=== PATIENT | female | born 1995 | race African-American/Black ===

== ENCOUNTER 2016-09-08 18:31 | Emergency (ER) | payer BC ==
[2016-09-08] MEDS ORDERED: Lidocaine Viscous Sol 2% 15 ml UD Cup ONE (19:04)
[2016-09-08] MEDS ORDERED: Famotidine 20 MG TAB ONE (19:04)
[2016-09-08] MEDS ORDERED: Mag-Al Plus 1200 MG/1200 MG/120 MG/30 ML UDCUP ONE (19:04)
[2016-09-08 19:10] LABS: #Basophils 0.1 thou/uL (0.0-0.2); #Eosinphils 0.1 thou/uL (0.0-0.7); #Lymphocytes 2.3 thou/uL (1.20-3.40); #Monocytes 0.7 thou/uL (0.11-0.59); #Neutrophils 6.2 thou/uL (1.40-6.50); %Basophils 0.9 % (0.0-1.0); %Eosinophils 1.2 % (0.0-10.0); %Lymphocytes 24.5 % (28.0-48.0); %Monocytes 7.4 % (0.0-4.0); Hematocrit 38.5 % (36.0-47.0); Mean Platelet Volume 7.6 fL (7.4-10.4); Red Blood Cell (RBC) Count 4.38 mill/uL (4.00-5.20); White Blood Cell (WBC) Count 9.3 thou/uL (4.8-10.8)
[2016-09-08 19:25] LABS: ALT (SGPT) 39 U/L (0-55); AST (SGOT) 31 U/L (5-34); Alkaline Phosphatase 81 U/L (40-150); Anion Gap 11 mmol/L (10-20); BUN (Urea Nitrogen) 10 mg/dL (7.0-18.7); Bilirubin, Total 0.1 mg/dL (0.2-1.2); Calc. Creatinine Clearance 0 mL/min (70-130); Calcium 8.8 mg/dL (7.8-10.44); Carbon Dioxide 26 mmol/L (22-29); Chloride 109 mmol/L (98-107); Estimated GFR-MDRD Greater than 90; Globulin 2.9 g/dL (2.4-3.5); Lipase 36 U/L (8-78); Protein, Total 6.6 g/dL (6.0-8.3)
--- NOTE | 2016-09-08 19:52 | ERRECORD ---
[facility] EMERGENCY RECORD HPI ABDOMINAL PAIN (18:58 BLEW) CHIEF COMPLAINTS: Patient presents for evaluation of abdominal pain. HISTORIAN: History provided by patient, Patient reports "burning" epigastric for 3 days. Worse after eating, especially something spicey. A "TUMS" taken yesterday helped somewhat (transiently). Pain is non-radiating. Patient had similar pains (although much worse) a few years ago due to bad stomach acid. She has not been taking any meds since that time. She is nauseous, but no vomiting. No black or bloody stools. LOCATION FEMALE: Symptoms are localized, most severe in the epigastrium, no radiation, No migration of pain. QUALITY: Described as similar to previous episodes. SEVERITY: Maximum severity of symptoms moderate, Currently symptoms are moderate. TIME COURSE: Gradual onset of symptoms. ASSOCIATED WITH FEMALE: No associated recent antibiotic use, No associated bright red blood per rectum, No associated constipation, No associated diarrhea, No associated fever, Associated with nausea, No associated trauma, No associated inability to tolerate oral intake, No associated urinary tract infection signs or symptoms, No associated vomiting, No associated vaginal discharge, No associated vaginal bleeding. ROS (19:01 BLEW) CONSTITUTIONAL: Negative constitutional review of systems, Historian denies chills, denies fever. EYES: Negative eye review of systems. ENT: Negative ears, nose, throat review of systems. CARDIOVASCULAR: Negative cardiovascular review of systems, Historian denies chest pain, denies palpitations. RESPIRATORY: Negative respiratory review of systems, Historian denies cough, denies shortness of breath. GI: Negative gastrointestinal review of systems, Historian denies abdominal pain, denies constipation, denies diarrhea. MUSCULOSKELETAL: Negative musculoskeletal review of systems. SKIN: Negative skin review of systems. NEUROLOGIC: Negative neurologic review of systems. ENDOCRINE: Negative endocrine review of systems. HEMO/LYMPHATIC: Normal hematologic/lymphatic system review. PSYCHIATRIC: Negative psychiatric review of systems. NOTES: All other ROS is negative except as listed in HPI. PAST MEDICAL HISTORY MEDICAL HISTORY: No past medical history. (18:42 GHIA) FEMALE SURGICAL HISTORY: Patient has no surgical history. (18:42 GHIA) PSYCHIATRIC HISTORY: No previous psychiatric history. (18:42 GHIA) SOCIAL HISTORY: Social History includes lives with &a-1R&a+25V*p+0X*y6711Y*c202B*c15G*c2P*p-0X&a-25V&a+1R Name: Anna Bates : 1995 F21 MedRec: [id number] AcctNum: [id number] Prepared: Mariam Sep 08, 2016 19:49 by Interface Page 1 of 3 pMD [facility] EMERGENCY RECORD alone, Patient denies alcohol use, Patient denies drug use, Patient has no smoking history. (18:42 GHIA) NOTES: I have reviewed and agree with the PMH/PSxH/FamHx/SocHx obtained by the nurse. (19:01 BLEW) KNOWN ALLERGIES none CURRENT MEDICATIONS (19:15 LHAL) None VITAL SIGNS VITAL SIGNS: BP: 133/79, Pulse: 77, Resp: 17, Temp: 98.7PO, Pain: 8, O2 sat: 100 on RA, Time: 09/08/2016 18:36. (18:36 GHIA) BP: 112/73, Pulse: 72, Resp: 16, Temp: 97.2, Pain: 0, O2 sat: 99 on RA, Time: 09/08/2016 19:40. (19:40 LHAL) PHYSICAL EXAM (19:01 BLEW) CONSTITUTIONAL: Vital signs reviewed, Patient appears non toxic, Patient alert and oriented to person, place and time, Pt is in no apparent distress. HEAD: Head exam included findings of head atraumatic, normocephalic. EYES: Eye exam included findings of eyelids normal to inspection, Pupils equally round and reactive to light, Extraocular muscles intact. ENT: ENT exam normal, Nose exam normal, no nasal deformity, no bleeding from nares, Pharynx exam normal, Mouth exam normal, mucous membranes moist. NECK: Neck exam included findings of normal range of motion, Trachea midline. RESPIRATORY CHEST: Respiratory and chest exam normal, Breath sounds clear, No wheezing, No rales, Chest exam included findings of chest movement symmetrical, Chest expansion equal. CARDIOVASCULAR: Cardiovascular assessment normal, Cardiovascular exam included findings of heart rate regular rate and rhythm, Heart sounds normal. ABDOMEN FEMALE: Abdominal exam included findings of abdomen nontender, Bowel sounds normal, no mass, no pulsatile masses, no peritoneal signs. BACK: Back exam included findings of normal inspection, range of motion normal, no costovertebral angle tenderness. UPPER EXTREMITY: Upper extremity exam included findings of inspection normal, Range of motion normal. LOWER EXTREMITY: Lower extremity exam included findings of inspection normal, Range of motion normal. NEURO: Neuro exam findings include patient oriented to person, place and time, Speech normal, no focal motor deficits, no focal sensory deficits. SKIN: Skin exam included findings of skin warm, dry, and normal &a-1R&a+25V*p+0X*y5559W*c202B*c15G*c2P*p-0X&a-25V&a+1R Name: Anna Bates : 1995 F21 MedRec: [id number] AcctNum: [id number] Prepared: Mariam Sep 08, 2016 19:49 by Interface Page 2 of 3 pMD [facility] EMERGENCY RECORD in color. LYMPHATIC: Lymphatic exam normal. PSYCHIATRIC: Psychiatric exam included findings of patient oriented to person place and time, Normal affect. MEDICATION ADMINISTRATION SUMMARY Drug Name: GI COCKTAIL - WHITE, Dose Ordered: 40 mL, Route: Oral, Status: Given, Time: 19:03 09/08/2016, Drug Name: famotidine oral, Dose Ordered: 20 mg, Route: Oral, Status: Given, Time: 19:03 09/08/2016, Detailed record available in Medication Service section. DOCTOR NOTES (19:19 BLEW) NOTES: Patient presents with upper abdominal pain. DDX considered includes: pyelo, appy, diverticulitis, GB dz., PUD, pancreatitis, gastritis, crohn's, AAA, obstruction. Abd exam is not c/w surgical abdomen. Testing here is re-assuring and patient is stable for outpatient follow up. Patients pain is controlled and is tolerating PO's. PROBLEM LIST No recorded problems DIAGNOSIS (19:20 BLEW) FINAL: PRIMARY: ACUTE GASTRITIS WITHOUT BLEEDING. PRESCRIPTION (19:20 BLEW) Carafate: SUSPENSION, ORAL (FINAL DOSE FORM) : 1 gram/10 mL : ORAL : Quantity: 10 Unit: mL Route: ORAL Schedule: every 6 hours PRN Dispense: 200 May substitute. Refills: No Refills . NOTES: May substitute for capsule formulation (#24) No Refills. PriLOSEC OTC: TABLET, DELAYED RELEASE (ENTERIC COATED) : 20 mg : ORAL : Quantity: 20 Unit: mg Route: ORAL Schedule: 2 times a day (before meals) Dispense: 60 May substitute. Refills: No Refills . NOTES: No Refills. DISPOSITION PATIENT: Disposition Type: Discharge, Disposition: *Discharge Home. (19:39 BLEW) Patient left the department. (19:46 LHAL) Nino: BLEW=DO Maldonado Brandon GHIA=PANKAJ Duran, Ciera LHAL=PANKAJ Lord, Lori &a-1R&a+25V*p+0X*[id number]*c202B*c15G*c2P*p-0X&a-25V&a+1R Name: Anna Bates : 1995 F21 MedRec: [id number] AcctNum: [id number] Prepared: Mariam Sep 08, 2016 19:49 by Interface Page 3 of 3 pMD MTDD
--- NOTE | 2016-09-08 19:58 | PICIS ---
[facility] EMERGENCY RECORD TRIAGE (18:36 GHIA) PATIENT: NAME: Anna Bates, AGE: 21, GENDER: female, : Sun 1995, TIME OF GREET: MonSep 08, 2016 18:32, ECODE BILLING MAP: [facility], Zip Code: [address], KG WEIGHT: 83.91, PHONE: , , , PERSON ID: [id number]. (18:36 GHIA) TRIAGE NOTES: Center abd pain after eating. (18:36 GHIA) COMPLAINT: BURNING SENSATION IN ABD. (18:36 GHIA) ADMISSION: URGENCY: 3 Urgent, ADMISSION SOURCE: Home, TRANSPORT: CAR, BED: TRIAGE. (18:36 GHIA) ASSESSMENT: Assessment: Pt with center abd pain., Symptoms began 4 days ago. (18:42 GHIA) PAIN: Patient complains of pain described as, Location center abd...worse before and after eating, Pain is constant. (18:42 GHIA) IMMUNIZATIONS: Flu vaccine not up to date, Tetanus not up to date, Pneumococcal vaccine not up to date. (18:42 GHIA) SIRS SCORING: Heart Rate 55-109 (0), Temp range 96.8-101.1 (0), respiratory rate 12-24 (0), Mental Status altered: no (0). (18:42 GHIA) TRIAGE SCREENING: Patient denies suicidal ideation, Patient denies presence of domestic violence. (18:42 GHIA) LMP: Last menstrual period: current, , P: 0, AB: 0. (18:42 GHIA) TREATMENTS IN PROGRESS: Treatments given Prehospital: tums like med x 2 days; 1400 today. (18:42 GHIA) PROVIDERS: TRIAGE NURSE: Ciera Duran RN. (18:36 GHIA) KNOWN ALLERGIES none CURRENT MEDICATIONS (19:15 LHAL) None VITAL SIGNS VITAL SIGNS: BP: 133/79, Pulse: 77, Resp: 17, Temp: 98.7PO, Pain: 8, O2 sat: 100 on RA, Time: 09/08/2016 18:36. (18:36 GHIA) BP: 112/73, Pulse: 72, Resp: 16, Temp: 97.2, Pain: 0, O2 sat: 99 on RA, Time: 09/08/2016 19:40. (19:40 LHAL) NURSING ASSESSMENT: HEAD-TO-TOE (18:36 GHIA) CONSTITUTIONAL: Patient arrives ambulatory, Gait steady, History obtained from patient, Patient appears comfortable, Patient cooperative, Patient alert, Oriented to person, place and time, Skin warm, Skin dry, Skin normal in color, Mucous membranes pink, Mucous membranes moist, Patient is well-groomed, Patient complains of Abd pain, Pt in room in bed in gown. Assess. Plan of care of pt in ER discussed. &a-1R&a+25V*p+0X*j6904N*c202B*c15G*c2P*p-0X&a-25V&a+1R Name: Anna Bates : 1995 F21 MedRec: [id number] AcctNum: [id number] Prepared: Mariam Sep 08, 2016 19:56 by Interface Page 1 of 8 pMD [facility] EMERGENCY RECORD PAIN: sharp pain, center abd, Onset of pain 4 days ago, constant, on a scale 0-10 patient rates pain as 8. SKIN: Skin assessment findings include skin warm, Skin dry, Skin normal in color, Notes: clean and intact. RESPIRATORY/CHEST: Respiratory assessment findings include respiratory effort easy. CARDIOVASCULAR: Cardiovascular assessment findings include heart rate normal. ABDOMEN: Abdomen assessment findings include abdomen symmetrical, Associated with nausea, no associated vomiting, no associated diarrhea, no associated constipation. GENITOURINARY FEMALE: no associated urinary complaints. NOTES: Emotional support needed and given, Patient tolerated procedure well. SAFETY: Side rails up, Cart/Stretcher in lowest position, Call light within reach, Hospital ID band on. VITAL SIGNS: BP: 133, / 79, Pulse: 77, Resp: 17, Temp: 98.7PO, Pain: 8, O2 sat: 100, on: RA. NURSING PROCEDURE: DISCHARGE NOTE (19:40 LHAL) DISCHARGE: Patient discharged to home, ambulating without assistance, driving self, unaccompanied, Summary of Care printed/ provided, Patient requested and was provided an electronic copy of Discharge Instructions, Transition record given to patient, Discharge instructions given to patient, Simple or moderate discharge teaching performed, by Jj LORD RN, Prescriptions given and instructions on side effects given, Name of prescription(s) given: PRILOSEC, CARAFATE, Medication reconciliation form given, and reviewed with patient, Above person(s) verbalized understanding of discharge instructions and follow-up care, Notes: DC HOME STABLE, PAIN FREE, NO SYMPTOMS, A&OX3, SKIN PINK W/D, NORMAL EVEN RESP, AMBULATES STEADY GAIT. BELONGINGS: Belongings and valuables with patient upon arrival to the Emergency Department include:. VITAL SIGNS: BP: 112, / 73, Pulse: 72, Resp: 16, Temp: 97.2, Pain: 0, O2 sat: 99, on: RA. NURSING PROCEDURE: LAB DRAW (19:00 LHAL) PATIENT IDENTIFIER: Patient actively involved in identification process, Patient's identity verified by patient stating name, Patient's identity verified by patient stating date, Patient's identity verified by hospital ID bracelet. LAB DRAW: Lab draw indicated for obtaining specimens for evaluation, Initial lab draw performed, by venipuncture, from right antecubital, in one attempt, Lab specimens labeled in the presence of the patient and sent to lab. FOLLOW-UP: After procedure, dressing applied to site, After procedure, no swelling at site, After procedure, no active bleeding from site. &a-1R&a+25V*p+0X*m1251A*c202B*c15G*c2P*p-0X&a-25V&a+1R Name: Anna Bates : 1995 F21 MedRec: [id number] AcctNum: [id number] Prepared: [facility] Sep 08, 2016 19:56 by Interface Page 2 of 8 pMD [facility] EMERGENCY RECORD SAFETY: Side rails up, Cart/Stretcher in lowest position, Call light within reach, Hospital ID band on. NURSING PROCEDURE: NURSE NOTES NURSES NOTES: Notes: Er DR at bedside. (18:46 GHIA) Shift change report given, to to Lori LIRA at bedside, Provided opportunity to answer questions. (18:52 GHIA) Notes: RECEIVED REPORT ON PT, PT SITTING UP IN BED COMFORTABLE, NO DISTRESS, LAST MEAL CHICKEN STRIPS AT 5PM, PAIN BEGAIN 510PM, TOOK ZANTAC, HAD SOME RELIEF. PAIN MILD NOW. (18:50 LHAL) Notes: PAIN FREE, NO SYMPTOMS. (19:15 LHAL) ORDER DETAILS Order Name: CBC with Differential, Status: Active, Time: 18:55 09/08/2016, User: SHAISTA, - Ordered for: DO Maldonado Brandon, - Entered by: DO Maldonado Brandon - [facility] Sep 08, 2016 18:55, - Quantity: 1, Order Name: Comprehensive Metabolic Panel, Status: Active, Time: 18:55 09/08/2016, User: SHAISTA, - Ordered for: DO Maldonado Brandon, - Entered by: DO Maldonado Brandon - [facility] Sep 08, 2016 18:55, - Quantity: 1, Order Name: Lipase, Status: Active, Time: 18:55 09/08/2016, User: SHAISTA, - Ordered for: DO Maldonado Brandon, - Entered by: DO Maldonado Brandon - [facility] Sep 08, 2016 18:55, - Quantity: 1, Order Name: Test, Serum (BHCG), Status: Active, Time: 18:57 09/08/2016, User: SHAISTA, - Ordered for: DO Maldonado Brandon, - Entered by: DO Maldonado Brandon [facility] Sep 08, 2016 18:57, - Quantity: 1. MEDICATION ADMINISTRATION SUMMARY Drug Name: GI COCKTAIL - WHITE, Dose Ordered: 40 mL, Route: Oral, Status: Given, Time: 19:03 09/08/2016, Drug Name: famotidine oral, Dose Ordered: 20 mg, Route: Oral, Status: Given, Time: 19:03 09/08/2016, Detailed record available in Medication Service section. MEDICATION SERVICE famotidine oral: Order: famotidine oral (famotidine) - Dose: 20 mg : Oral Ordered by: Nitish Maldonado DO Entered by: Nitish Maldonado DO [facility] Sep 08, 2016 18:57 Documented as given by: Lori Lord RN [facility] Sep 08, 2016 19:03 Patient, Medication, Dose, Route and Time verified prior to &a-1R&a+25V*p+0X*f2161W*c202B*c15G*c2P*p-0X&a-25V&a+1R Name: Anna Bates : 1995 F21 MedRec: [id number] AcctNum: [id number] Prepared: MonSep 08, 2016 19:56 by Interface Page 3 of 8 pMD [facility] EMERGENCY RECORD administration. Amount given: 20 mg, Site: Medication administered P.O., Correct patient, time, route, dose and medication confirmed prior to administration, Patient advised of actions and side-effects prior to administration, Allergies confirmed and medications reviewed prior to administration, Administered by Jj LORD RN, Patient in position of comfort, Side rails up, Cart in lowest position. : Follow Up : No signs or symptoms of allergic reaction noted, Decreased pain. (19:16 LHAL) GI COCKTAIL - WHITE: Order: GI COCKTAIL - WHITE - Dose: 40 mL : Oral Lidocaine Viscous (lidocaine HCl) [10 mL] MAG-AL (magnesium hydroxide/aluminum hydroxide) [30 mL] Ordered by: Nitish Maldonado DO Entered by: Nitish Maldonado DO [facility] Sep 08, 2016 18:57 Documented as given by: Lori Lord RN [facility] Sep 08, 2016 19:03 Patient, Medication, Dose, Route and Time verified prior to administration. Amount given: 40 ML, Site: Medication administered P.O., Correct patient, time, route, dose and medication confirmed prior to administration, Patient advised of actions and side-effects prior to administration, Allergies confirmed and medications reviewed prior to administration, Administered by Jj LORD RN, Patient in position of comfort, Side rails up, Cart in lowest position. : Follow Up : No signs or symptoms of allergic reaction noted, Decreased pain. (19:16 LHAL) HPI ABDOMINAL PAIN (18:58 BLEW) CHIEF COMPLAINTS: Patient presents for evaluation of abdominal pain. HISTORIAN: History provided by patient, Patient reports "burning" epigastric for 3 days. Worse after eating, especially something spicey. A "TUMS" taken yesterday helped somewhat (transiently). Pain is non-radiating. Patient had similar pains (although much worse) a few years ago due to bad stomach acid. She has not been taking any meds since that time. She is nauseous, but no vomiting. No black or bloody stools. LOCATION FEMALE: Symptoms are localized, most severe in the epigastrium, no radiation, No migration of pain. QUALITY: Described as similar to previous episodes. SEVERITY: Maximum severity of symptoms moderate, Currently symptoms are moderate. TIME COURSE: Gradual onset of symptoms. ASSOCIATED WITH FEMALE: No associated recent antibiotic use, No associated bright red blood per rectum, No associated constipation, No associated diarrhea, No associated fever, Associated with nausea, No associated trauma, No associated inability to tolerate oral intake, No associated urinary tract infection signs or symptoms, No associated vomiting, No associated vaginal discharge, No associated vaginal bleeding. &a-1R&a+25V*p+0X*p1796L*c202B*c15G*c2P*p-0X&a-25V&a+1R Name: Anna Bates : 1995 F21 MedRec: [id number] AcctNum: [id number] Prepared: Mariam Sep 08, 2016 19:56 by Interface Page 4 of 8 pMD [facility] EMERGENCY RECORD ROS (19:01 BLEW) CONSTITUTIONAL: Negative constitutional review of systems, Historian denies chills, denies fever. EYES: Negative eye review of systems. ENT: Negative ears, nose, throat review of systems. CARDIOVASCULAR: Negative cardiovascular review of systems, Historian denies chest pain, denies palpitations. RESPIRATORY: Negative respiratory review of systems, Historian denies cough, denies shortness of breath. GI: Negative gastrointestinal review of systems, Historian denies abdominal pain, denies constipation, denies diarrhea. MUSCULOSKELETAL: Negative musculoskeletal review of systems. SKIN: Negative skin review of systems. NEUROLOGIC: Negative neurologic review of systems. ENDOCRINE: Negative endocrine review of systems. HEMO/LYMPHATIC: Normal hematologic/lymphatic system review. PSYCHIATRIC: Negative psychiatric review of systems. NOTES: All other ROS is negative except as listed in HPI. PAST MEDICAL HISTORY MEDICAL HISTORY: No past medical history. (18:42 GHIA) FEMALE SURGICAL HISTORY: Patient has no surgical history. (18:42 GHIA) PSYCHIATRIC HISTORY: No previous psychiatric history. (18:42 GHIA) SOCIAL HISTORY: Social History includes lives with alone, Patient denies alcohol use, Patient denies drug use, Patient has no smoking history. (18:42 GHIA) NOTES: I have reviewed and agree with the PMH/PSxH/FamHx/SocHx obtained by the nurse. (19:01 BLEW) PHYSICAL EXAM (19:01 BLEW) CONSTITUTIONAL: Vital signs reviewed, Patient appears non toxic, Patient alert and oriented to person, place and time, Pt is in no apparent distress. HEAD: Head exam included findings of head atraumatic, normocephalic. EYES: Eye exam included findings of eyelids normal to inspection, Pupils equally round and reactive to light, Extraocular muscles intact. ENT: ENT exam normal, Nose exam normal, no nasal deformity, no bleeding from nares, Pharynx exam normal, Mouth exam normal, mucous membranes moist. NECK: Neck exam included findings of normal range of motion, Trachea midline. RESPIRATORY CHEST: Respiratory and chest exam normal, Breath sounds clear, No wheezing, No rales, Chest exam included findings of chest movement symmetrical, Chest expansion equal. CARDIOVASCULAR: Cardiovascular assessment normal, Cardiovascular &a-1R&a+25V*p+0X*f9390U*c202B*c15G*c2P*p-0X&a-25V&a+1R Name: Anna Bates : 1995 F21 MedRec: [id number] AcctNum: [id number] Prepared: Mariam Sep 08, 2016 19:56 by Interface Page 5 of 8 pMD [facility] EMERGENCY RECORD exam included findings of heart rate regular rate and rhythm, Heart sounds normal. ABDOMEN FEMALE: Abdominal exam included findings of abdomen nontender, Bowel sounds normal, no mass, no pulsatile masses, no peritoneal signs. BACK: Back exam included findings of normal inspection, range of motion normal, no costovertebral angle tenderness. UPPER EXTREMITY: Upper extremity exam included findings of inspection normal, Range of motion normal. LOWER EXTREMITY: Lower extremity exam included findings of inspection normal, Range of motion normal. NEURO: Neuro exam findings include patient oriented to person, place and time, Speech normal, no focal motor deficits, no focal sensory deficits. SKIN: Skin exam included findings of skin warm, dry, and normal in color. LYMPHATIC: Lymphatic exam normal. PSYCHIATRIC: Psychiatric exam included findings of patient oriented to person place and time, Normal affect. EVENTS TRANSFER: Triage to Emergency Triage. ([facility] Sep 08, 2016 18:36 GHIA) Emergency Triage to Emergency Room -03. (18:49 GHIA) Removed from Emergency Emergency Room -03. (19:46 LHAL) DOCTOR NOTES (19:19 BLEW) NOTES: Patient presents with upper abdominal pain. DDX considered includes: pyelo, appy, diverticulitis, GB dz., PUD, pancreatitis, gastritis, crohn's, AAA, obstruction. Abd exam is not c/w surgical abdomen. Testing here is re-assuring and patient is stable for outpatient follow up. Patients pain is controlled and is tolerating PO's. PROBLEM LIST No recorded problems DIAGNOSIS (19:20 BLEW) FINAL: PRIMARY: ACUTE GASTRITIS WITHOUT BLEEDING. DISPOSITION PATIENT: Disposition Type: Discharge, Disposition: *Discharge Home. (19:39 BLEW) Patient left the department. (19:46 LHAL) INSTRUCTION (19:21 BLEW) DISCHARGE: GASTRITIS VS. ULCER. FOLLOWUP: [facility], /[facility], [address] [place] [id number], , Follow up with Primary Care Physician in 3-4 days. &a-1R&a+25V*p+0X*v2285P*c202B*c15G*c2P*p-0X&a-25V&a+1R Name: Anna Bates : 1995 F21 MedRec: [id number] AcctNum: [id number] Prepared: Mariam Sep 08, 2016 19:56 by Interface Page 6 of 8 pMD [facility] EMERGENCY RECORD SPECIAL: Avoid spicy foods. Take medications as prescribed. Call your doctor or return with worsening or worrisome symptoms. PRESCRIPTION (19:20 BLEW) Carafate: SUSPENSION, ORAL (FINAL DOSE FORM) : 1 gram/10 mL : ORAL : Quantity: 10 Unit: mL Route: ORAL Schedule: every 6 hours PRN Dispense: 200 May substitute. Refills: No Refills . NOTES: May substitute for capsule formulation (#24) No Refills. PriLOSEC OTC: TABLET, DELAYED RELEASE (ENTERIC COATED) : 20 mg : ORAL : Quantity: 20 Unit: mg Route: ORAL Schedule: 2 times a day (before meals) Dispense: 60 May substitute. Refills: No Refills . NOTES: No Refills. IMAGING *DISCHARGE INSTRUCTIONS RECEIPT: Image captured from scanner. (19:44 LHAL) Page 2 added. Image captured from scanner. (19:44 LHAL) *SUPPLY CHARGE SHEET: Image captured from scanner. (19:45 LHAL) ADMIN DIGITAL SIGNATURE: PANKAJ Lord Linda. (19:46 LHAL) PANKAJ Lord Linda. (19:48 LHAL) RESULTS LABORATORY: CBC with Differential Collection DT: [facility] Sep 08, 2016 19:05, White Blood Cell (WBC) Count 9.3 thou/uL, Range (4.8-10.8), Red Blood Cell (RBC) Count 4.38 mill/uL, Range (4.00-5.20), Hemoglobin 12.4 g/dL, Range (12.0-16.0), Hematocrit 38.5 %, Range (36.0-47.0), *Mean Corpuscular Volume 87.9 - H fl, Range (77.0-87.0), Mean Corpuscular Hemoglobin 28.4 pg, Range (25.0-35.0), Mean Corpuscular HGB CONC 32.3 g/dL, Range (32.0-36.0), RBC Distribution Width 12.2 %, Range (11.5-14.5), Platelet Count 244 thou/uL, Range (130-400), Mean Platelet Volume 7.6 fL, Range (7.4-10.4), *%Neutrophils 66.1 - H %, Range (31.0-61.0), *%Lymphocytes 24.5 - L %, Range (28.0-48.0), *%Monocytes 7.4 - H %, Range (0.0-4.0), %Eosinophils 1.2 %, Range (0.0-10.0), %Basophils 0.9 %, Range (0.0-1.0), #Neutrophils 6.2 thou/uL, Range (1.40-6.50), #Lymphocytes 2.3 thou/uL, Range (1.20-3.40), *#Monocytes 0.7 - H thou/uL, Range (0.11-0.59), #Eosinphils 0.1 thou/uL, Range (0.0-0.7), #Basophils 0.1 thou/uL, Range (0.0-0.2). (19:19 BLEW) &a-1R&a+25V*p+0X*o8615N*c202B*c15G*c2P*p-0X&a-25V&a+1R Name: Anna Bates : 1995 F21 MedRec: [id number] AcctNum: [id number] Prepared: MonSep 08, 2016 19:56 by Interface Page 7 of 8 pMD [facility] EMERGENCY RECORD Test, Serum (BHCG) Collection DT: MonSep 08, 2016 19:05, BHCG - Serum NEGATIVE , Range (NEGATIVE), Method of sensitivity- Indeterminant: results should be repeated, after 48 hours. Positive: results may be detected as early as 4-5 days before a first missed menses. Elimination of BHCG-, Elimination following first trimester D&C: 29-44 Days , Elimination following term : 8-24 Days . (19:38 BLEW) Lipase Collection DT: MonSep 08, 2016 19:05, Lipase 36 U/L, Range (8-78). (19:38 BLEW) Comprehensive Metabolic Panel Collection DT: MonSep 08, 2016 19:05, Sodium 142 mmol/L, Range (136-145), Potassium 3.7 mmol/L, Range (3.5-5.1), *Chloride 109 - H mmol/L, Range (98-107), Carbon Dioxide 26 mmol/L, Range (22-29), Anion Gap 11 mmol/L, Range (10-20), BUN (Urea Nitrogen) 10 mg/dL, Range (7.0-18.7), Creatinine 0.80 mg/dL, Range (0.6-1.1), Estimated GFR-MDRD Greater than 90 , Reference Range for Estimated GFR: Greater than 90, mL/min/1.73 m2 NOTE: The MDRD equation has not been validated for use, with the elderly (over 70 years of age), women, patients with, serious comorbid condition or persons with extremes of body size, muscle, mass, or nutritional status. , Glucose 101 mg/dL, Range (70-105), Calcium 8.8 mg/dL, Range (7.8-10.44), *Bilirubin, Total 0.1 - L mg/dL, Range (0.2-1.2), Protein, Total 6.6 g/dL, Range (6.0-8.3), NOTE: Plasma values are generally 0.3 to 0.5 g/dL higher than serum values, due to the presence of fibrinogen. , Albumin 3.7 g/dL, Range (3.5-5.0), Globulin 2.9 g/dL, Range (2.4-3.5), Alb/Glob Ratio 1.3 g/dL, Range (1.2-2.2), Alkaline Phosphatase 81 U/L, Range (40-150), AST (SGOT) 31 U/L, Range (5-34), ALT (SGPT) 39 U/L, Range (0-55). (19:38 BLEW) Nino: ÓSCARW=DO Maldonado Brandon GHIA=PANKAJ Duran, Ciera LHAL=PANKAJ Lord, Lori &a-1R&a+25V*p+0X*g2009F*c202B*c15G*c2P*p-0X&a-25V&a+1R Name: Anna Bates : 1995 F21 MedRec: [id number] AcctNum: [id number] Prepared: Mariam Sep 08, 2016 19:56 by Interface Page 8 of 8 pMD MTDD
== END 2016-09-08 19:40 | disposition home or self-care (01) ==
LOC: NAV ERS 18:31
DX: K29.00 Acute gastritis without bleeding (principal)
CPT/HCPCS: 80053; 83690; 84703; 85025; 99284